=== PATIENT | female | born 1980 | race Caucasian/White ===

== ENCOUNTER → 2016-11-08 | Outpatient (REF) | payer BC | LOC: M LAB REF 12:33 | PROVIDERS: ATTEND Physician Assistant Medical | DX: J02.9 Acute pharyngitis, unspecified (principal) ==

== ENCOUNTER 2017-05-01 20:30 | Emergency (ER) | payer OTHER, SELFPAY ==
[~2017-05-01] VITALS: Ht 160 cm; Wt 80.0 kg
[2017-05-01] MEDS ORDERED: VITA100067 PO (20:44)
[2017-05-01] MEDS ORDERED: [UNRECOGNIZED DRUG - CODE] PO (20:44)
[2017-05-01] MEDS ORDERED: FISH1000 PO (20:44)
[2017-05-01] MEDS ORDERED: VITA50TA43 PO (20:44)
[2017-05-01] MEDS ORDERED: [UNRECOGNIZED DRUG - OTHER] (20:44)
[2017-05-01] MEDS ORDERED: MECLIZINE 25 MG TABLET PO ONE (21:45)
[2017-05-01 21:46] LABS: BASO # 0.1 K/mm3 (0.0-0.2); EOS # 0.3 K/mm3 (0.0-0.50); EOS % 3.9 % (0.0-3.0); LARGE UNSTAINED CELL # 0.1 K/mm3 (0.0-0.4); LARGE UNSTAINED CELL % 1.4 % (0.0-4.0); LYMPH # 2.5 K/mm3 (1.5-4.5); LYMPH % 29.8 % (24.0-44.0); MEAN CORPUSCULAR HEMOGLOBIN 30.3 pg (27.0-33.0); MEAN CORPUSCULAR HGB CONC 34.4 g/dl (32.0-36.5); MEAN CORPUSCULAR VOLUME 88.1 fl (80.0-96.0); MONO # 0.4 K/mm3 (0.0-0.8); MONO % 5.2 % (0.0-5.0); NEUTROPHILS # 4.7 K/mm3 (1.8-7.7); NEUTROPHILS % 58.7 % (36.0-66.0); PLATELET COUNT, AUTOMATED 270 k/mm3 (150-450); RED CELL DISTRIBUTION WIDTH 12.4 % (11.5-14.5); WHITE BLOOD COUNT 8.1 K/mm3 (4.0-10.0)
[2017-05-01 22:00] LABS: ANION GAP 10 MEQ/L (8-16); BLOOD UREA NITROGEN 18 MG/DL (7-18); CALCIUM LEVEL 8.8 MG/DL (8.5-10.1); CARBON DIOXIDE LEVEL 26 MEQ/L (21-32); CHLORIDE LEVEL 106 MEQ/L (98-107); CREATININE FOR GFR 0.93 MG/DL (0.55-1.02); FREE T4 0.95 NG/DL (0.76-1.46); GLOMERULAR FILTRATION RATE > 60.0 (>60); GLUCOSE, FASTING 106 MG/DL (70-105); SODIUM LEVEL 142 MEQ/L (136-145)
--- NOTE | 2017-05-01 23:10 | REPUSA ---
HISTORY: Syncope. COMPARISON: None provided. CHEST, FRONTAL: Heart: Top normal size allowing for AP portable technique. Lungs: Mild pulmonary vascular redistribution. No lobar infiltrate, pulmonary edema, pneumothorax or significant effusion. Skeleton: Intact. IMPRESSION: Mild pulmonary vascular redistribution may indicate an element of mild CHF or volume over load.
[2017-05-01 23:32] LABS: METHADONE URINE NEGATIVE (NEGATIVE)
[2017-05-02 01:57] VITALS: BP 119/73
--- NOTE | 2017-05-02 02:20 | REPUSA ---
CLINICAL HISTORY: Dizziness. Vertigo. TECHNIQUE: MRI of the brain was performed without administration of intravenous contrast material. T1 spine echo, T2 fast spin echo and FLAIR sequences were obtained in sagittal, axial and coronal plane s. FINDINGS: The sella and parasellar regions are unremarkable in appearance. The corpus callosum and cerebellar t onsils are of normal configuration and position. There are no intra or extra-axial collections. There is no mass effect or midline shift. There is no evidence of hematoma formation. There is no hydrocep halus. The brain stem shows no mass effects, infarcts or hemorrhage. There are no cerebellopontine tumors. T he acoustic nerves are symmetrical. No cerebellar intra-axial pathology delineated. The fourth ventri ronit and aqueduct are normal. No abnormalities of the optic nerves are identified. No dural or subdura l masses or collections are detected. The visualized arterial structures demonstrate normal appearing flow voids. The VII and VIII nerve bu ndles are visualized and are unremarkable in appearance. There are no suspicious signal abnormalities within the infra or supratentorial space. Mild chronic mucosal inflammatory changes in the maxillary sinuses and ethmoid air cells. Secretions in the left sphenoid sinus. IMPRESSION: Sinusitis. Acute on top of chronic. Normal MRI of the brain. No acute intracranial pathology. Thank you for your kind referral of this patient.
--- NOTE | 2017-05-02 02:20 | REPUSA ---
CLINICAL HISTORY: Dizziness. TECHNIQUE: Three dimensional ghco-rk-anbxus angiography is performed of the [place]. The ryan dy was performed without IV contrast agent. FINDINGS: The supraclinoid portions of the internal carotid arteries are of normal shape. The normal bifurcation is seen. The middle cerebral arteries are unremarkable in appearance. The posterior circu lation is visualized and shows no evidence of occlusion or aneurysm formation. The basilar tip is see n and shows no aneurysm formation. There is no evidence of beading to suggest vasculitis. IMPRESSION: MRA of the [place] is within normal limits. Thank you for your kind referral of this patient.
[2017-05-02] MEDS ORDERED: VALI5TAB PO (03:06)
[2017-05-02] MEDS ORDERED: FLON1SPR (03:06)
--- NOTE | 2017-05-03 19:59 | ECGEPIP ---
Stationary ECG Study [facility] - ED Test Date: 2017-05-01 Pat Name: SANTOS PERKINS Department: Room: - Gender: F Counter Person: gladys : [id number] Requested By: FILEMON Salinas Order Number: [id number] Reading MD: Keren Sherwood Measurements Intervals [place] Rate: 70 P: 21 [place]: 159 QRS: 47 QRSD: 91 T: 20 QT: 393 QTc: 426 Interpretive Statements SINUS RHYTHM INCOMPLETE RIGHT BUNDLE BRANCH BLOCK NO OLD ECG FOR COMPARISON Electronically Signed On 05-03-2017 19:59:40 EDT by Keren Sherwood
== END 2017-05-02 03:38 | disposition home or self-care (01) ==
LOC: EDBD 20:30 → M ED 20:30
DX: J01.90 Acute sinusitis, unspecified (principal); Z87.891 Personal history of nicotine dependence; F12.10 Cannabis abuse, uncomplicated
CPT/HCPCS: 70544; 70551; 71010; 80048; 80307; 82550; 82553; 84439; 84443; 85025; 93005; 93041; 94760; 96374; 99284; G0480; J3360

== ENCOUNTER → 2017-11-04 | Outpatient (REF) | payer OTHER | LOC: M LAB REF 16:16 | DX: J02.9 Acute pharyngitis, unspecified (principal) ==

== ENCOUNTER → 2021-07-15 | Outpatient (CLI) | payer OTHER ==
[~2021-07-15] MED LIST: FISH1000 PO; FLON1SPR; VALI5TAB PO; VITA100067 PO; VITA50TA43 PO; [UNRECOGNIZED DRUG - CODE] PO; [UNRECOGNIZED DRUG - OTHER]
--- NOTE | 2021-07-15 14:45 | REP ---
INDICATION: LEFT BREAST ADD VIEWS. COMPARISON: Mammograms seen [facility] 08/20/2018, 07/20/2016, sarika screening mammogram 06/02/2021. TECHNIQUE: Compression magnification and additional tomographic images of the left breast are performed. Focused left breast ultrasound performed. FINDINGS: Dystrophic calcifications are again seen in the 9 o'clock region of the left breast, with an adjacent biopsy clip from a prior negative biopsy in 2018. The ill-defined opacity more inferiorly and posteriorly in the left breast is associated with several tiny calcifications. However this opacity has remained stable since 2016. There may be a few new tiny calcifications but they appear to lie within the skin. Focused left breast ultrasound is performed inferolaterally in the left breast. The area of extensive dystrophic calcification is visualized at 9 o'clock with extensive distal acoustic shadowing. There is a small associated cystic area as well. These more superficial area in question is not visualized sonographically. IMPRESSION: BIRADS/ACR category 2, benign. There are findings of dystrophic calcifications and stable postsurgical change in the left breast from prior breast reduction surgery. The questionable asymmetric density inferomedially and posteriorly in the left breast has been present since 2016. It contains a few internal tiny calcifications which appear to lie within the skin based on tomographic images. Again, this is most consistent with postsurgical scarring. This mammogram was interpreted with the aid of an FDA-approved computer-aided detection system. The patient letter being requested is M 1. RECOMMENDATION: Repeat screening mammography recommended 1 year (for women over 40). <Electronically signed by Torito Gramajo > 07/15/21 0250
== END ==
LOC: M WHC 11:20
PROVIDERS: ATTEND Family Medicine
DX: R92.1 Mammographic calcification found on diagnostic imaging of breast (principal)
CPT/HCPCS: 76642; 77065; G0279

== ENCOUNTER → 2021-09-09 | Outpatient (REF) | payer OTHER | LOC: M SFHCWAGY 13:21 | PROVIDERS: ATTEND Advanced Practice Midwife | DX: Z12.4 Encounter for screening for malignant neoplasm of cervix (principal) | CPT/HCPCS: 87624; G0123 ==